=== PATIENT | female | born 1965 | race Caucasian/White ===

== ENCOUNTER → 2017-06-30 | Outpatient (CLI) | payer BC ==
--- NOTE | 2017-06-30 14:40 | KCIC ---
EXAM: Left elbow, 2 views. HISTORY: Pain. COMPARISON: None. FINDINGS: Frontal and lateral views of the left elbow are obtained. There is no fracture, dislocation or subluxation. No elbow effusion is seen. IMPRESSION: No acute osseous finding. Electronically signed by: Maxine San MD (06/30/2017 2:37 PM) [facility]
== END | disposition home or self-care (01) ==
LOC: KCIC 14:21
PROVIDERS: ATTEND Nurse Practitioner Family
DX: M25.522 Pain in left elbow (principal)
CPT/HCPCS: 73070